=== PATIENT | male | born 1945 | race Caucasian/White ===

== ENCOUNTER 2021-02-22 04:50 | Day surgery (SDC) | payer OTHER, MEDICARE ==
[2021-02-20 14:48] VITALS: BMI 29.6
[2021-02-22 09:28] VITALS: TEMP 97.3
[2021-02-22 10:06] VITALS: BP 132/56; PULSE 54
== END 2021-02-22 10:14 | disposition home or self-care (01) ==
LOC: JASU-ENDO 04:50
PROVIDERS: ATTEND Internal Medicine Gastroenterology
PROC: 0DBN8ZX Excision of Sigmoid Colon, Via Natural or Artificial Opening Endoscopic, Diagnostic (ICD-10-PCS; 2021-02-22)
PROC: 0DBK8ZX Excision of Ascending Colon, Via Natural or Artificial Opening Endoscopic, Diagnostic (ICD-10-PCS; 2021-02-22)
PROC: 0DBH8ZX Excision of Cecum, Via Natural or Artificial Opening Endoscopic, Diagnostic (ICD-10-PCS; principal; 2021-02-22 08:35)
DX: Z12.11 Encounter for screening for malignant neoplasm of colon (principal); K52.89 Other specified noninfective gastroenteritis and colitis; K57.30 Diverticulosis of large intestine without perforation or abscess without bleeding; Z87.19 Personal history of other diseases of the digestive system
CPT/HCPCS: 88305-TC

== ENCOUNTER → 2023-03-27 | Day surgery (SDC) | payer OTHER, MEDICARE ==
[2023-03-24 14:10] VITALS: BMI 29.2
[~2023-03-27] MED LIST: ePHEDrine SULFATE 50 MG/1 ML AMPULE ONE
[2023-03-27 10:12] VITALS: TEMP 98
[2023-03-27 10:53] VITALS: BP 121/57; PULSE 56; RESP 20
== END | disposition home or self-care (01) ==
LOC: JASU-ENDO 05:04
PROVIDERS: ATTEND Internal Medicine Gastroenterology
PROC: 0DBM8ZX Excision of Descending Colon, Via Natural or Artificial Opening Endoscopic, Diagnostic (ICD-10-PCS; 2023-03-27)
PROC: 0DBH8ZX Excision of Cecum, Via Natural or Artificial Opening Endoscopic, Diagnostic (ICD-10-PCS; principal; 2023-03-27 10:00)
DX: D12.0 Benign neoplasm of cecum (principal); K63.5 Polyp of colon; K52.9 Noninfective gastroenteritis and colitis, unspecified; K57.30 Diverticulosis of large intestine without perforation or abscess without bleeding
CPT/HCPCS: 88305-TC